=== PATIENT | female | born 1975 | race African-American/Black ===

== ENCOUNTER 2016-05-03 11:20 | Emergency (ER) | payer SELFPAY ==
[~2016-05-03] VITALS: Ht 185.4 cm; Wt 150.0 kg
[~2016-05-03 11:20] MED LIST: AMOXICILLIN/PO500 MG PO; AMOXICILLIN500 MG OR; AMOXICILLIN875 MG PO; CEPHALEXIN500 M1 PO; CIPRO500 MG OR; FLAGYL500 MG PO; FLEXERIL PO; FLONASE0.05 %; LISINOPRIL10 MG PO; LORTAB 10 PO; LORTAB 10-325 M1 TAB PO; METFORMIN500 MG PO; NO HOME MEDS; ORTHO TRI-CY OR; PERCOCET 5/325M1 TAB OR; PREMARIN1.25 MG PO; PREVPAC OR; ULTRAM50 M1 PO; ULTRAM50 MG OR; ULTRAM50 MG PO
[2016-05-03] MEDS ORDERED: LISINOPRIL2.5 MG PO (11:35)
[2016-05-03 12:27] LABS: HEMATOCRIT 41.8 % (37.0-47.0); HEMOGLOBIN 13.8 g/dl (12.0-16.0); IMMATURE GRANULOCYTES 0.2 % (0.0-1.0); MEAN CELL VOLUME 76.4 fL CALC (80.0-100.0); MEAN CORPUSCULAR HGB 25.2 pG CALC (26.0-32.0); NEUT# 3.99 thou/uL (2.00-7.15); RED BLOOD COUNT 5.47 mill/uL (4.20-5.60); RED CELL DISTRI WIDTH 14.7 % (11.5-15.5)
[2016-05-03 12:31] LABS: URINE BILIRUBIN - DIPSTICK NEGATIVE (NEGATIVE); URINE BLOOD DIPSTICK LARGE (NEGATIVE); URINE COLOR YELLOW; URINE GLUCOSE - DIPSTICK NEGATIVE (NEGATIVE); URINE KETONE NEGATIVE (NEGATIVE); URINE LEUK ESTERASE NEGATIVE (NEGATIVE); URINE NITRITE - DIPSTICK NEGATIVE (Negative); URINE PROTEIN - DIPSTICK NEGATIVE (NEG-TRACE); URINE SPECIFIC GRAVITY 1.015; URINE UROBILINOGEN - DIPSTICK 0.2 E.U./dL (0.2)
[2016-05-03 12:32] LABS: ALBUMIN 3.8 g/dL (3.2-5.0); ALKALINE PHOSPHATASE 79 u/l (38-126); AMYLASE 91 u/l (30-110); ANION GAP 13 (6-22 (CALC)); BILIRUBIN, TOTAL 0.5 mg/dL (0.0-1.4); BUN 9 mg/dL (7-17); BUN/CREATININE RATIO 11 (12-20 (CALC)); CARBON DIOXIDE 24 mmol/l (22-30); CHLORIDE 105 mmol/l (95-108); CREATININE 0.8 mg/dL (0.5-1.0); GFR > 60 ML/MIN (>=60 (CALC)); GFR FOR AFR.AMER. > 60 ML/MIN (>=60 (CALC)); GLUCOSE 142 mg/dL (65-105); LIPASE 366 u/l (23-300); POTASSIUM 4.2 mmol/l (3.5-5.1); SGOT/AST 21 u/l (14-36); SGPT/ALT 21 u/l (9-52); SODIUM 138 mmol/l (137-146); TOTAL PROTEIN 7.9 g/dL (6.3-8.2)
[2016-05-03 12:34] LABS: URINE CLARITY SLIGHT CLOUDY
[2016-05-03 12:35] LABS: URINE RBC 25-50 RBC/hpf (0-5)
[2016-05-03] MEDS ORDERED: PERCOCET 5/325M1 TAB PO (14:35)
[2016-05-03] MEDS ORDERED: MOTRIN800 MG PO (14:35)
[2016-05-03 14:45] VITALS: BP 152/90
== END 2016-05-03 14:45 | disposition home or self-care (01) | DRG 392 ==
LOC: ED 11:20
PROVIDERS: Emergency Medicine
DX: R10.31 Right lower quadrant pain (principal); R10.32 Left lower quadrant pain; R19.09 Other intra-abdominal and pelvic swelling, mass and lump

== ENCOUNTER 2016-05-11 23:36 | Emergency (ER) | payer SELFPAY ==
[~2016-05-11] VITALS: Ht 185.4 cm; Wt 147.7 kg
[~2016-05-11 23:36] MED LIST changes: +LISINOPRIL2.5 MG PO; +MOTRIN800 MG PO; +PERCOCET 5/325M1 TAB PO
[2016-05-12 00:53] LABS: HEMATOCRIT 38.9 % (37.0-47.0); HEMOGLOBIN 12.8 g/dl (12.0-16.0); IMMATURE GRANULOCYTES 0.4 % (0.0-1.0); MEAN CELL VOLUME 78.3 fL CALC (80.0-100.0); MEAN CORPUSCULAR HGB 25.8 pG CALC (26.0-32.0); MEAN CORPUSCULAR HGB CONC 32.9 g/L CALC (32.0-36.0); NEUT# 6.59 thou/uL (2.00-7.15); RED BLOOD COUNT 4.97 mill/uL (4.20-5.60); RED CELL DISTRI WIDTH 15.1 % (11.5-15.5)
[2016-05-12 01:12] LABS: ALBUMIN 3.8 g/dL (3.2-5.0); ALKALINE PHOSPHATASE 92 u/l (38-126); AMYLASE 80 u/l (30-110); ANION GAP 16 (6-22 (CALC)); BILIRUBIN, TOTAL 0.4 mg/dL (0.0-1.4); BUN 8 mg/dL (7-17); BUN/CREATININE RATIO 10 (12-20 (CALC)); CALCIUM 9.4 mg/dL (8.4-10.2); CARBON DIOXIDE 24 mmol/l (22-30); CHLORIDE 102 mmol/l (95-108); CREATININE 0.9 mg/dL (0.5-1.0); GFR > 60 ML/MIN (>=60 (CALC)); GFR FOR AFR.AMER. > 60 ML/MIN (>=60 (CALC)); GLUCOSE 227 mg/dL (65-105); LIPASE 155 u/l (23-300); POTASSIUM 4.1 mmol/l (3.5-5.1); SGOT/AST 23 u/l (14-36); SGPT/ALT 21 u/l (9-52); SODIUM 138 mmol/l (137-146)
[2016-05-12 03:31] VITALS: BP 127/75
== END 2016-05-12 03:52 | disposition home or self-care (01) | DRG 392 ==
LOC: ED 23:36
PROVIDERS: Emergency Medicine
DX: R10.31 Right lower quadrant pain (principal); R10.2 Pelvic and perineal pain; R10.32 Left lower quadrant pain

== ENCOUNTER 2016-05-22 20:19 | Emergency (ER) | payer SELFPAY ==
[~2016-05-22] VITALS: Ht 185.4 cm; Wt 139.2 kg
[2016-05-22 22:28] LABS: URINE BILIRUBIN - DIPSTICK NEGATIVE (NEGATIVE); URINE BLOOD DIPSTICK LARGE (NEGATIVE); URINE CLARITY CLOUDY; URINE COLOR YELLOW; URINE GLUCOSE - DIPSTICK NEGATIVE (NEGATIVE); URINE KETONE NEGATIVE (NEGATIVE); URINE LEUK ESTERASE SMALL (NEGATIVE); URINE NITRITE - DIPSTICK NEGATIVE (Negative); URINE PH 5.5 (4.5-8.0); URINE PROTEIN - DIPSTICK TRACE mg/dL (NEG-TRACE); URINE SPECIFIC GRAVITY 1.025; URINE UROBILINOGEN - DIPSTICK 0.2 E.U./dL (0.2)
[2016-05-22 22:48] LABS: URINE BACTERIA FEW hpf; URINE RBC TNTC RBC/hpf (0-5); URINE SQUAMOUS EPITHELIAL CELL FEW EPI/hpf (0-FEW)
[2016-05-22] MEDS ORDERED: PERCOCET 5/325M1 TAB PO (23:02)
[2016-05-22] MEDS ORDERED: CIPROFLOXACN500 MG PO (23:02)
[2016-05-22 23:10] VITALS: BP 138/88
== END 2016-05-22 23:10 | disposition home or self-care (01) | DRG 690 ==
LOC: ED 20:19
PROVIDERS: Emergency Medicine
DX: N39.0 Urinary tract infection, site not specified (principal); I10 Essential (primary) hypertension; R10.32 Left lower quadrant pain; R19.00 Intra-abdominal and pelvic swelling, mass and lump, unspecified site; E11.9 Type 2 diabetes mellitus without complications; F17.210 Nicotine dependence, cigarettes, uncomplicated

== ENCOUNTER 2016-05-25 04:54 | Day surgery (SDC) | payer SELFPAY ==
[~2016-05-25] VITALS: Ht 170.2 cm; Wt 141.1 kg
[~2016-05-25 04:54] MED LIST changes: +CIPROFLOXACN500 MG PO
[2016-05-25] MEDS ORDERED: NORCO1 TA2 PO (08:25)
[2016-05-25 09:14] VITALS: BP 132/72
== END 2016-05-25 09:00 | disposition home or self-care (01) | DRG 744 ==
LOC: ORM 04:54
PROVIDERS: ATTEND Obstetrics & Gynecology
PROC: 0UDB8ZX Extraction of Endometrium, Via Natural or Artificial Opening Endoscopic, Diagnostic (ICD-10-PCS; principal; 2016-05-25)
DX: C54.1 Malignant neoplasm of endometrium (principal); Z68.41 Body mass index [BMI] 40.0-44.9, adult; I10 Essential (primary) hypertension; N92.1 Excessive and frequent menstruation with irregular cycle; E28.2 Polycystic ovarian syndrome; E11.9 Type 2 diabetes mellitus without complications; K21.9 Gastro-esophageal reflux disease without esophagitis; F17.210 Nicotine dependence, cigarettes, uncomplicated; E66.9 Obesity, unspecified

== ENCOUNTER 2023-11-19 11:58 | Emergency (ER) | payer OTHER ==
[~2023-11-19] VITALS: Ht 170.2 cm; Wt 74.8 kg
[~2023-11-19 11:58] MED LIST changes: +NORCO1 TA2 PO
[2023-11-19 13:04] LABS: URINE BILIRUBIN - DIPSTICK Negative (NEGATIVE); URINE BLOOD DIPSTICK Negative (NEGATIVE); URINE GLUCOSE - DIPSTICK 100 mg/dL (NEGATIVE); URINE KETONE Negative (NEGATIVE); URINE LEUK ESTERASE Trace (NEGATIVE); URINE NITRITE - DIPSTICK Negative (Negative); URINE PH 5.5 (4.5-8.0); URINE PROTEIN - DIPSTICK Negative (NEG-TRACE); URINE SPECIFIC GRAVITY 1.025; URINE UROBILINOGEN - DIPSTICK 0.2 E.U./dL (0.2)
[2023-11-19 13:09] LABS: URINE COLOR Yellow
[2023-11-19 14:00] VITALS: BP 147/95
[2023-11-19] MEDS ORDERED: MORPHINE SULFATE 4 MG/ML VIAL IV ONE (14:05)
[2023-11-19] MEDS ORDERED: methylPREDNISolone SODIUM SUCC 125 MG/2 ML SDV IV ONE (14:15)
[2023-11-19] MEDS ORDERED: DiphenhydrAMINE HCL 50 MG/ML SDV IV ONE (14:15)
[2023-11-19 14:30] LABS: BASO% 0.6 % (0-3); EOS% 1.2 % (0-8); HEMATOCRIT 41.2 % (37.0-47.0); HEMOGLOBIN 13.8 g/dl (12.0-16.0); IMMATURE GRANULOCYTES 0.1 % (0.0-5.0); MEAN CORPUSCULAR HGB 26.8 pG CALC (26.0-32.0); MEAN CORPUSCULAR HGB CONC 33.5 g/dL CAL (32.0-36.0); MONO% 4.4 % (2-13); NEUT# 4.23 thou/uL (2.00-7.15); NEUT% 51.7 % (42-76); RED BLOOD COUNT 5.15 mill/uL (4.20-5.60); RED CELL DISTRI WIDTH 12.4 % (11.5-15.5)
[2023-11-19 14:41] LABS: ALBUMIN 4.4 g/dL (3.2-5.0); CREATININE 0.8 mg/dL (0.5-1.0); POTASSIUM 4.9 mmol/l (3.5-5.1); TOTAL PROTEIN 8.3 g/dL (6.3-8.2)
[2023-11-19] MEDS ORDERED: AMPICILLIN & SULBACTAM SODIUM 1.5 GM in SODIUM CHLORIDE 0.9% 50 ML IV ONE (14:55)
[2023-11-19 15:46] VITALS: BP 169/95
[2023-11-19 16:00] VITALS: BP 163/103
[2023-11-19 16:15] VITALS: BP 162/96
[2023-11-19] MEDS ORDERED: AMOXICILLIN & POT CLAVULANATE 875 MG/TAB PO ONE (19:00)
[2023-11-19] MEDS ORDERED: levoFLOXacin 500 MG TAB PO ONE (19:00)
[2023-11-19] MEDS ORDERED: CIPROFLOXACN500 MG PO (19:03)
[2023-11-19] MEDS ORDERED: LORTAB 5/3255 MG PO (19:03)
[2023-11-19] MEDS ORDERED: AMOX/K CLAV875 M1 PO (19:03)
[2023-11-19] MEDS ORDERED: HYDROcodone 5 MG/Acetaminophen 325 MG/COMBO PO ONE (19:05)
[2023-11-19 19:23] VITALS: BP 162/96
== END 2023-11-19 19:23 | disposition home or self-care (01) ==
LOC: ED 11:58
PROVIDERS: Family Medicine; Nurse Practitioner Family
DX: H60.12 Cellulitis of left external ear (principal); G93.9 Disorder of brain, unspecified; I10 Essential (primary) hypertension; E11.9 Type 2 diabetes mellitus without complications; F17.200 Nicotine dependence, unspecified, uncomplicated; Z85.42 Personal history of malignant neoplasm of other parts of uterus; Z79.84 Long term (current) use of oral hypoglycemic drugs; Z91.041 Radiographic dye allergy status
CPT/HCPCS: Q9967